=== PATIENT | female | born 1955 | race Caucasian/White ===

== ENCOUNTER 2025-05-14 19:16 | Inpatient (IN) | payer MEDICARE, BC ==
[~2025-05-14] VITALS: Ht 165.1 cm; Wt 52.6 kg
[2025-05-14 20:24] LABS: CREATININE 1.2 mg/dL (0.6-1.3); PLATELET COUNT (AUTO) 342 K/uL (179-408); RED CELL DISTRIBUTION WIDTH 19.9 % (12.3-17.7); UREA NITROGEN, BLOOD 52.0 mg/dL (7-18); WHITE BLOOD COUNT (AUTO) 18.5 K/uL (3.8-11.8)
[2025-05-14 20:26] LABS: RED BLOOD CELL COUNT(AUTO) 6.55 MIL/uL (3.63-4.92)
[2025-05-14 20:29] LABS: ASPARTATE AMINOTRANSFERASE 68.0 U/L (15-37); TOTAL PROTEIN, SERUM 7.4 g/dL (6.4-8.2)
[2025-05-14 20:30] LABS: SODIUM SERUM 132.0 mmol/L (136-145)
[2025-05-14] MEDS ORDERED: VANCOMYCIN IV 200 ML ONE (20:44)
[2025-05-14 20:48] LABS: LYMPHOCYTES % (MANUAL) 1 % (20-40); MONOCYTES % (MANUAL) 5 % (2-10); NEUTROPHILS % (MANUAL) 94 % (42-75); PLATELET ESTIMATE ADEQUATE
[2025-05-14] MEDS: VANCOMYCIN IV 1,000 MG in IV DEXTROSE 5% 250 ML IV ONE (21:00)
[2025-05-14] MEDS ORDERED: PRAS10TA20 PO (21:40)
[2025-05-14] MEDS ORDERED: DILT-2 PO (21:40)
[2025-05-14] MEDS ORDERED: ATOR80TA PO (21:40)
[2025-05-14] MEDS ORDERED: SODIUM POLYSTYRENE SULFONATE 15 G/60 ML LIQUID UDC ONE (22:42)
[2025-05-14] MEDS: SODIUM POLYSTYRENE SULFONATE 15 G/60 ML LIQUID UDC PO ONE (23:15)
[2025-05-15] VITALS (7 sets, daily range): BP systolic 123–150; BP diastolic 55–83; TEMP 97.6–98.4; O2SAT 96–98
[2025-05-15] MEDS ORDERED: FUROSEMIDE 40 MG/4 ML VIAL ONE (00:46)
[2025-05-15] MEDS: FUROSEMIDE 40 MG/4 ML VIAL IV ONE (01:19)
[2025-05-15] MEDS ORDERED: MAGNESIUM HYDROXIDE 30 ML LIQUID UDC PO PRN (02:00)
[2025-05-15] MEDS ORDERED: ONDANSETRON 4 MG/2 ML VIAL IV PRN (02:00)
[2025-05-15 02:27] LABS: CREATININE 1.1 mg/dL (0.6-1.3); SODIUM SERUM 131.0 mmol/L (136-145); UREA NITROGEN, BLOOD 54.0 mg/dL (7-18)
[2025-05-15] MEDS: ENOXAPARIN SODIUM 40 MG/0.4 ML DISP.SYRIN SQ SCH (03:41)
[2025-05-15] MEDS ORDERED: PIPERACILLIN/TAZOBACTAM/D5W 50 ML IV ONE (04:01)
[2025-05-15] MEDS: ACETAMINOPHEN 325 MG TABLET PO PRN (04:02)
[2025-05-15] MEDS: PIPERACILLIN SODIUM/TAZOBACTAM 3.375 G in IV DEXTROSE 5% 50 ML IV ONE (04:21)
[2025-05-15 07:33] LABS: PLATELET COUNT (AUTO) 239 K/uL (179-408); RED BLOOD CELL COUNT(AUTO) 5.43 MIL/uL (3.63-4.92); RED CELL DISTRIBUTION WIDTH 19.8 % (12.3-17.7); WHITE BLOOD COUNT (AUTO) 11.9 K/uL (3.8-11.8)
[2025-05-15 07:40] LABS: CREATININE 1.1 mg/dL (0.6-1.3); SODIUM SERUM 133.0 mmol/L (136-145); UREA NITROGEN, BLOOD 51.0 mg/dL (7-18)
[2025-05-15] MEDS: DILTIAZEM HCL CD 120 MG CAP.SR.24H PO SCH (08:49)
[2025-05-15] MEDS: PIPERACILLIN SODIUM/TAZOBACTAM 3.375 G in IV DEXTROSE 5% 50 ML IV SCH (09:26)
[2025-05-15] MEDS: POTASSIUM CHLORIDE 20 MEQ TAB.PRT.SR PO ONE (12:35)
[2025-05-15] MEDS: IV NS 1000 ML 1,000 ML IV ONE (14:23)
[2025-05-15] MEDS: ATORVASTATIN 40 MG TABLET PO SCH (20:34)
[2025-05-15] MEDS: VANCOMYCIN IV 1,250 MG in IV DEXTROSE 5% 250 ML IV SCH (20:35)
[2025-05-16 01:19] VITALS: BP 119/54; TEMP 97.5; O2SAT 97
[2025-05-16 04:46] VITALS: BP 217/50; TEMP 97.5; O2SAT 96
[2025-05-16 06:58] LABS: CREATININE 0.7 mg/dL (0.6-1.3); SODIUM SERUM 132.0 mmol/L (136-145); UREA NITROGEN, BLOOD 25.0 mg/dL (7-18)
[2025-05-16 07:56] VITALS: BP 122/54; TEMP 98.4; O2SAT 96
[2025-05-16] MEDS: MAGNESIUM OXIDE 400 MG TABLET PO ONE (09:04)
[2025-05-16] MEDS: PRASUGREL HCL 5 MG TABLET PO SCH (09:40)
[2025-05-16] MEDS: POTASSIUM CHLORIDE 20 MEQ TAB.PRT.SR PO ONE (09:49)
[2025-05-16] MEDS: POTASSIUM CHLORIDE 50 ML IV SCH (09:56)
[2025-05-16 11:21] VITALS: BP 125/58; TEMP 98.3; O2SAT 98
[2025-05-16 15:19] LABS: CREATININE 0.7 mg/dL (0.6-1.3); SODIUM SERUM 134.0 mmol/L (136-145); UREA NITROGEN, BLOOD 20.0 mg/dL (7-18)
[2025-05-16] MEDS: NEUTRA PHOS PACKET PO ONE (15:46)
[2025-05-16 16:01] VITALS: BP 106/51; TEMP 97.8; O2SAT 96
[2025-05-16] MEDS: VANCOMYCIN HCL 750 MG in IV DEXTROSE 5% 250 ML IV SCH (17:20)
[2025-05-17 00:15] VITALS: BP 121/63; TEMP 98.2; O2SAT 98
[2025-05-17 05:40] VITALS: BP 129/68; TEMP 97.5; O2SAT 100
[2025-05-17 07:24] LABS: PLATELET COUNT (AUTO) 204 K/uL (179-408); RED BLOOD CELL COUNT(AUTO) 5.01 MIL/uL (3.63-4.92); RED CELL DISTRIBUTION WIDTH 20.2 % (12.3-17.7); WHITE BLOOD COUNT (AUTO) 10.2 K/uL (3.8-11.8)
[2025-05-17 07:40] LABS: CREATININE 0.5 mg/dL (0.6-1.3); SODIUM SERUM 131.0 mmol/L (136-145); UREA NITROGEN, BLOOD 16.0 mg/dL (7-18)
[2025-05-17] MEDS: LIDOCAINE 5% PATCH TD SCH (08:32)
[2025-05-17] MEDS: ARGININE/GLUTAMINE/CALCIUM BMB 1 EACH POWD.PACK PO SCH (08:33)
[2025-05-17] MEDS: ENSURE ENLIVE (VAN) 240 ML LIQUID PO SCH (08:33)
[2025-05-17] MEDS: NEUTRA PHOS PACKET PO ONE (10:57)
[2025-05-17 11:17] VITALS: BP 123/68; TEMP 97.7; O2SAT 97
[2025-05-17] MEDS: MAGNESIUM OXIDE 400 MG TABLET PO ONE (12:09)
[2025-05-17 15:07] VITALS: BP 116/55; TEMP 97.9; O2SAT 100
[2025-05-17 20:46] VITALS: BP 126/65; TEMP 97.8; O2SAT 97
[2025-05-17] MEDS: SENNOSIDES 1 TABLET PO SCH (21:54)
[2025-05-17] MEDS: TRAMADOL HCL 50 MG TABLET PO PRN (21:55)
[2025-05-18 05:31] VITALS: BP 121/63; TEMP 98; O2SAT 95
[2025-05-18 06:19] LABS: PLATELET COUNT (AUTO) 330 K/uL (179-408); RED BLOOD CELL COUNT(AUTO) 3.74 MIL/uL (3.63-4.92); RED CELL DISTRIBUTION WIDTH 19.0 % (12.3-17.7); WHITE BLOOD COUNT (AUTO) 5.5 K/uL (3.8-11.8)
[2025-05-18 06:40] LABS: CREATININE 0.9 mg/dL (0.6-1.3); SODIUM SERUM 136.0 mmol/L (136-145); UREA NITROGEN, BLOOD 21.0 mg/dL (7-18)
[2025-05-18 15:07] VITALS: BP 126/68; TEMP 97.9; O2SAT 95
[2025-05-18] MEDS: VANCOMYCIN IV 1,000 MG in IV DEXTROSE 5% 250 ML IV SCH (17:45)
[2025-05-18 20:26] VITALS: BP 124/64; TEMP 98.6; O2SAT 96
[2025-05-19 06:36] LABS: PLATELET COUNT (AUTO) 216 K/uL (179-408); RED BLOOD CELL COUNT(AUTO) 4.77 MIL/uL (3.63-4.92); RED CELL DISTRIBUTION WIDTH 20.9 % (12.3-17.7); WHITE BLOOD COUNT (AUTO) 9.5 K/uL (3.8-11.8)
[2025-05-19 06:51] VITALS: BP 126/63; TEMP 98.5; O2SAT 97
[2025-05-19 08:35] LABS: CREATININE 0.5 mg/dL (0.6-1.3); SODIUM SERUM 137.0 mmol/L (136-145); UREA NITROGEN, BLOOD 19.0 mg/dL (7-18)
[2025-05-19] MEDS: MAGNESIUM OXIDE 400 MG TABLET PO ONE (10:37)
[2025-05-19 11:22] VITALS: BP 111/59; TEMP 97.6; O2SAT 93
[2025-05-19 15:31] VITALS: BP 115/53; TEMP 97.7; O2SAT 93
[2025-05-19] MEDS: SODIUM PHOSPHATE MM 15 MMOL in IV NORMAL SALINE 250 ML IV ONE (17:36)
[2025-05-19 20:00] VITALS: BP 125/57; TEMP 98; O2SAT 92
[2025-05-20 04:21] LABS: PLATELET COUNT (AUTO) 228 K/uL (179-408); RED BLOOD CELL COUNT(AUTO) 4.76 MIL/uL (3.63-4.92); RED CELL DISTRIBUTION WIDTH 21.3 % (12.3-17.7); WHITE BLOOD COUNT (AUTO) 9.9 K/uL (3.8-11.8)
[2025-05-20 04:37] LABS: CREATININE 0.4 mg/dL (0.6-1.3); SODIUM SERUM 137 mmol/L (136-145); UREA NITROGEN, BLOOD 13 mg/dL (7-18)
[2025-05-20 04:57] LABS: EOSINOPHILS % (MANUAL) 1 % (0-8); LYMPHOCYTES % (MANUAL) 11 % (20-40); MONOCYTES % (MANUAL) 6 % (2-10); NEUTROPHILS % (MANUAL) 82 % (42-75); PLATELET ESTIMATE ADEQUATE
[2025-05-20 05:38] VITALS: BP 120/61; TEMP 97.9; O2SAT 93
[2025-05-20] MEDS: NEUTRA PHOS PACKET PO ONE (11:19)
[2025-05-20] MEDS: MAGNESIUM OXIDE 400 MG TABLET PO ONE (11:19)
[2025-05-20 11:42] VITALS: BP 122/63; TEMP 97.8; O2SAT 96
[2025-05-20] MEDS: VANCOMYCIN IV 1,000 MG in IV DEXTROSE 5% 250 ML IV SCH (14:52)
[2025-05-20 15:15] VITALS: BP 144/59; TEMP 98.2; O2SAT 96
== END 2025-05-20 18:21 | DRG 299 ==
LOC: ER 19:22 → TELE3 05-15 00:32 → MEDSURG3 05-16 10:53
PROVIDERS: ADMIT Nurse Practitioner Acute Care
PROC: 05HA33Z Insertion of Infusion Device into Left Brachial Vein, Percutaneous Approach (ICD-10-PCS; principal; 2025-05-15)
DX: I70.263 Atherosclerosis of native arteries of extremities with gangrene, bilateral legs (principal); E43 Unspecified severe protein-calorie malnutrition; I50.32 Chronic diastolic (congestive) heart failure; E87.1 Hypo-osmolality and hyponatremia; L97.418 Non-pressure chronic ulcer of right heel and midfoot with other specified severity; B95.2 Enterococcus as the cause of diseases classified elsewhere; L03.116 Cellulitis of left lower limb; L03.115 Cellulitis of right lower limb; Z79.02 Long term (current) use of antithrombotics/antiplatelets; I70.248 Atherosclerosis of native arteries of left leg with ulceration of other part of lower leg; L97.822 Non-pressure chronic ulcer of other part of left lower leg with fat layer exposed; L97.812 Non-pressure chronic ulcer of other part of right lower leg with fat layer exposed; E87.5 Hyperkalemia; Z88.2 Allergy status to sulfonamides; R60.0 Localized edema; R79.89 Other specified abnormal findings of blood chemistry; I87.2 Venous insufficiency (chronic) (peripheral); I25.2 Old myocardial infarction; I25.10 Atherosclerotic heart disease of native coronary artery without angina pectoris; Z95.0 Presence of cardiac pacemaker; Z84.19 Family history of other disorders of kidney and ureter; Z79.899 Other long term (current) drug therapy
CPT/HCPCS: 36415; 70030-TC; 71045; 73590; 73630; 83735; 84100; 84443; 84550; 85025; 87040; 87070; 93005; 93307; A6209; A6213; G0378; J1650; J1938; J2543; J3373; J3480; J3490; J7040; J7050